=== PATIENT | female | born 1995 | race Hispanic/Latino ===

== ENCOUNTER 2024-05-27 17:27 | Emergency (ER) | payer OTHER ==
[~2024-05-27] VITALS: Ht 180.3 cm; Wt 127.0 kg
[2024-05-27 17:40] VITALS: PULSE 68; RESP 16; TEMP 98.5; O2SAT 100
[2024-05-27 18:16] LABS: CORONAVIRUS COVID-19 AG NEGATIVE (NEGATIVE); INFLUENZA A AG NEGATIVE (NEGATIVE); INFLUENZA B AG NEGATIVE (NEGATIVE)
== END 2024-05-27 19:14 | disposition home or self-care (01) ==
LOC: ER 17:54
DX: R05.9 Cough, unspecified (principal); J06.9 Acute upper respiratory infection, unspecified; Z11.52 Encounter for screening for COVID-19
CPT/HCPCS: 71046; 99282

== ENCOUNTER 2024-07-12 14:50 | Emergency (ER) | payer OTHER ==
[~2024-07-12] VITALS: Ht 180.3 cm; Wt 127.0 kg
[2024-07-12 15:07] VITALS: PULSE 85; RESP 16; TEMP 97.2
[2024-07-12 22:50] VITALS: BP 139/95; PULSE 61; RESP 16; TEMP 98.1; O2SAT 97
== END 2024-07-12 21:11 | disposition home or self-care (01) ==
LOC: ER 17:25
DX: M54.2 Cervicalgia (principal); M54.50 Low back pain, unspecified; V43.52XA Car driver injured in collision with other type car in traffic accident, initial encounter; Y92.488 Other paved roadways as the place of occurrence of the external cause
CPT/HCPCS: 72125; 72131; 81025; 99283